=== PATIENT | female | born 1955 | race Caucasian/White ===

== ENCOUNTER 2018-05-27 08:21 | Emergency (ER) | payer OTHER ==
[2018-05-27 08:48] VITALS: BP 127/71
--- NOTE | 2018-05-27 08:57 | UC ---
Lower Extremity/Ankle HPI - HPI Summary HPI Summary: left foot pain x 1 day s/p fall one day ago and injury to her right foot pain is on top of her right foot , no radiation , + swelling , increase pain with walking, better with rest - History of Current Complaint Chief Complaint: UCLowerExtremity Stated Complaint: RIGHT FOOT Time Seen by Provider: 05/27/18 08:34 Hx Obtained From: Patient Onset/Duration: Sudden Onset, Lasting Days - 1, Still Present Severity Initially: Moderate Severity Currently: Moderate Pain Intensity: 8 Aggravating Factor(s): Standing, Ambulation Alleviating Factor(s): Rest, Elevation, Ice Able to Bear Weight: Yes - Allergies/Home Medications Allergies/Adverse Reactions: Allergies Allergy/AdvReac Type Severity Reaction Status Date / Time ciprofloxacin Allergy Intermediate Hives Verified 05/27/18 08:26 Fish Allergy AdvReac diarrhea/vo Uncoded 05/27/18 08:33 miting Home Medications: Home Medications Aspirin 81 mg CHEW TAB* [Aspirin Low Dose TAB*] 81 mg PO DAILY 05/27/18 [ History Confirmed 05/27/18] Calcium Carbonate/Vitamin D3 [Calcium 1000 + D] 1 tab PO 05/27/18 [History] Cholecalciferol TAB* [Vitamin D TAB*] 1,000 unit PO DAILY 05/27/18 [History Confirmed 05/27/18] Cranberry 05/27/18 [History] Isosorbide Mononitrate [Isosorbide Mononitrate ER] 60 mg PO BID 05/27/18 [ History Confirmed 05/27/18] Methocarbamol TAB* [Robaxin 500 MG TAB*] 750 mg PO TID PRN 05/27/18 [History Confirmed 05/27/18] Multivitamin [Multivitamins] 1 cap PO DAILY 05/27/18 [History Confirmed 05/27/18 ] Naproxen Sodium [Aleve] 440 mg PO PRN 05/27/18 [History] PARoxetine HCL TAB* [Paxil TAB*] 10 mg PO DAILY 05/27/18 [History Confirmed ] Polyethylene Glycol 3350* [Miralax*] 17 gm PO DAILY 05/27/18 [History Confirmed 05/27/18] Vitamin E CAP* 200 unit PO DAILY 05/27/18 [History Confirmed 05/27/18] PMH/Surg Hx/FS Hx/Imm Hx - Additional Past Medical History Additional PMH: occ. episodes of a. fib seasonal allergies colon polyps depression/anxiety arthritis legs and back Cardiovascular History: Atrial Fibrillation Psychological History: Anxiety - Surgical History Surgical History: Yes Surgery Procedure, Year, and Place: ear surgeries. laparoscopy. foot/toe surgery. colonoscopy. tonsillectomy - Family History Known Family History: Positive: Hypertension - Social History Alcohol Use: Occasionally Substance Use Type: None Smoking Status (MU): Never Smoked Tobacco Review of Systems Constitutional: Negative Skin: Negative Eyes: Negative ENT: Negative Respiratory: Negative Cardiovascular: Negative Gastrointestinal: Negative Is Patient Immunocompromised?: No All Other Systems Reviewed And Are Negative: Yes Physical Exam Triage Information Reviewed: Yes Appearance: Well-Appearing, No Pain Distress, Well-Nourished Vital Signs: Initial Vital Signs Temp 98.3 F 05/27/18 08:41 Pulse 77 05/27/18 08:41 Resp 18 05/27/18 08:41 BP 127/71 05/27/18 08:41 Pulse Ox 99 05/27/18 08:41 Vital Signs Reviewed: Yes Eye Exam: Normal Eyes: Positive: Conjunctiva Clear ENT: Positive: Normal ENT inspection, Hearing grossly normal, Pharynx normal Neck: Positive: Supple, Nontender, No Lymphadenopathy Respiratory: Positive: Chest non-tender, Lungs clear, Normal breath sounds, No respiratory distress Cardiovascular: Positive: RRR, No Murmur, Pulses Normal Musculoskeletal: Positive: Other: - right foot: mild swelling hindfoot, no erythema, + tenderness hindfoot , increase pain with dorsiflexion , Diagnostics - Laboratory Diagnostic Studies Completed/Ordered: xray right foot: no fracture noted IMPRESSION: POSTSURGICAL CHANGES, NO FRACTURE IS SEEN. Lower Extremity Course/Dx - Differential Dx/Diagnosis Provider Diagnoses: right foot sprain Discharge - Sign-Out/Discharge Documenting (check all that apply): Patient Departure - Discharge Plan Condition: Stable Disposition: HOME Patient Education Materials: Foot Sprain (ED) Referrals: Orin Sahu PA [Primary Care Provider] - 2 Weeks - Billing Disposition and Condition Condition: STABLE Disposition: Home
--- NOTE | 2018-05-27 09:12 | RAD ---
INDICATION: Right foot injury. TECHNIQUE: 3 views of the right foot were obtained. FINDINGS: There is mild diffuse soft tissue swelling. There are 2 surgical screws spanning the first metatarsal-phalangeal joint. There is osseous fusion of the joint. The bones are in normal alignment. No fracture is seen. IMPRESSION: POSTSURGICAL CHANGES, NO FRACTURE IS SEEN.
== END 2018-05-27 09:23 | disposition home or self-care (01) ==
LOC: UCCORT 08:21
DX: S93.601A Unspecified sprain of right foot, initial encounter (principal); W19.XXXA Unspecified fall, initial encounter; Y93.9 Activity, unspecified; Y92.9 Unspecified place or not applicable; Z88.1 Allergy status to other antibiotic agents; M19.91 Primary osteoarthritis, unspecified site; M46.90 Unspecified inflammatory spondylopathy, site unspecified; I48.91 Unspecified atrial fibrillation
CPT/HCPCS: 99211; G0463

== ENCOUNTER 2018-08-17 12:21 | Emergency (ER) | payer OTHER ==
[2018-08-17 12:38] VITALS: BP 121/77
--- NOTE | 2018-08-17 12:54 | UC ---
Upper Extremity HPI - HPI Summary HPI Summary: pain right upper arm x 4 days s/p fall at work and injured her right upper arm pain and tenderness of right upper arm, mid humerus no swelling, no bruising - History of Current Complaint Chief Complaint: UCUpperExtremity Stated Complaint: RIGHT ARM INJURY - W/C Time Seen by Provider: 08/17/18 12:39 Hx Obtained From: Patient Hx Last Menstrual Period: n/a ?: No Onset/Duration: Sudden Onset, Lasting Days - 4, Still Present Severity Initially: Moderate Severity Currently: Moderate Pain Intensity: 10 Location Of Pain: Is Discrete @ - right upper arm Character: Aching Aggravating Factor(s): Movement, Lifting, Flexion, Extension, Abduction Alleviating Factor(s): Ice, Rest Associated Signs And Symptoms: Positive: Weakness. Negative: Swelling, Redness , Bruising, Fever, Numbness/Tingling - Allergies/Home Medications Allergies/Adverse Reactions: Allergies Allergy/AdvReac Type Severity Reaction Status Date / Time ciprofloxacin Allergy Intermediate Hives Verified 08/17/18 12:35 sertraline [From Zoloft] AdvReac See Comment Verified 08/17/18 12:35 Fish Allergy AdvReac diarrhea/vo Uncoded 08/17/18 12:35 miting PMH/Surg Hx/FS Hx/Imm Hx - Additional Past Medical History Additional PMH: occ. episodes of a. fib seasonal allergies colon polyps depression/anxiety arthritis legs and back Cardiovascular History: Atrial Fibrillation Psychological History: Anxiety - Surgical History Surgical History: Yes Surgery Procedure, Year, and Place: ear surgeries. laparoscopy. foot/toe surgery. colonoscopy. tonsillectomy - Family History Known Family History: Positive: Hypertension - Social History Alcohol Use: Rare Substance Use Type: None Smoking Status (MU): Never Smoked Tobacco Review of Systems Constitutional: Negative Skin: Negative Eyes: Negative ENT: Negative Respiratory: Negative Is Patient Immunocompromised?: No All Other Systems Reviewed And Are Negative: Yes Physical Exam Triage Information Reviewed: Yes Appearance: Well-Appearing, No Pain Distress, Well-Nourished Vital Signs: Initial Vital Signs Temp 98.4 F 08/17/18 12:32 Pulse 80 08/17/18 12:32 Resp 17 08/17/18 12:32 BP 121/77 08/17/18 12:32 Pulse Ox 98 08/17/18 12:32 Vital Signs Reviewed: Yes Eyes: Positive: Conjunctiva Clear ENT: Positive: Normal ENT inspection, Hearing grossly normal, Pharynx normal Neck: Positive: Supple, Nontender, No Lymphadenopathy Respiratory: Positive: Chest non-tender, Lungs clear, Normal breath sounds Cardiovascular: Positive: RRR, No Murmur, Pulses Normal Musculoskeletal: Positive: Other: - right shoulder: no swelling, no tenderness, good ROM right upper arm: + tenderness mid shaft humrus , no bruising , good ROM of flexion and extension , normal strength Diagnostics - Laboratory Diagnostic Studies Completed/Ordered: right upper arm xray : IMPRESSION: NO ACUTE OSSEOUS INJURY. IF SYMPTOMS PERSIST, RECOMMEND REPEAT IMAGING. Upper Extremity Course/Dx - Differential Dx/Diagnosis Provider Diagnoses: contusion right arm Discharge - Sign-Out/Discharge Documenting (check all that apply): Patient Departure All imaging exams completed and their final reports reviewed: Yes - Discharge Plan Condition: Stable Disposition: HOME Patient Education Materials: Contusion in Adults (ED) Referrals: Orin Sahu PA [Primary Care Provider] - 7 Days - Billing Disposition and Condition Condition: STABLE Disposition: Home
== END 2018-08-17 13:07 | disposition home or self-care (01) ==
LOC: UCCORT 12:21
DX: S40.021A Contusion of right upper arm, initial encounter (principal); I48.91 Unspecified atrial fibrillation; M47.9 Spondylosis, unspecified; W19.XXXA Unspecified fall, initial encounter; Y92.9 Unspecified place or not applicable; Z88.1 Allergy status to other antibiotic agents; Z88.8 Allergy status to other drugs, medicaments and biological substances; Z91.013 Allergy to seafood
CPT/HCPCS: 99211; G0463